=== PATIENT | female | born 1960 | race Caucasian/White ===

== ENCOUNTER 2022-09-29 15:16 | Outpatient (CLI) | payer OTHER ==
[2022-09-29] MEDS ORDERED: GABA-530 PO (16:29)
[2022-09-29] MEDS ORDERED: CELE-193 PO (16:29)
[2022-09-29] MEDS ORDERED: CYCL-145 PO (16:29)
== END 2022-09-29 23:59 | disposition home or self-care (01) ==
LOC: LAB 15:16 → EDSTATUS 10-08 11:45
PROVIDERS: ATTEND Orthopaedic Surgery
DX: Z01.818 Encounter for other preprocedural examination (principal); M17.11 Unilateral primary osteoarthritis, right knee; I51.7 Cardiomegaly
CPT/HCPCS: 87081; 93005

== ENCOUNTER 2023-02-11 05:31 | Inpatient (IN) | payer OTHER ==
[2023-02-02 12:06] LABS: ALBUMIN 4.4 G/DL (3.4-5.0); ALBUMIN/GLOBULIN RATIO 1.3 (1.1-1.5); ALKALINE PHOSPHATASE 80 IU/L (46-116); BLOOD UREA NITROGEN 6 MG/DL (7-18); BUN/CREATININE RATIO 9.1 (6.6-38.0); CALCIUM 9.5 MG/DL (8.5-10.1); CHLORIDE 98 MMOL/L (99-107); CREATININE 0.66 MG/DL (0.40-0.90); PRE OP ALT 11 U/L (30-65); PRE OP ANION GAP 6 (8-16); PRE OP AST 25 U/L (10-37); PRE OP BILIRUB, TOTAL 0.5 MG/DL (0.0-1.0); PRE OP GLUCOSE 117 MG/DL (70-104); PRE OP POTASSIUM 3.7 MMOL/L (3.4-5.1); PRE OP SODIUM 135 MMOL/L (135-145); TOTAL CARBON DIOXIDE 30.8 MMOL/L (24-32); TOTAL PROTEIN 7.9 G/DL (6.4-8.2); eGFR 90 ML/MIN
[2023-02-02 12:12] LABS: BASOPHILS % (AUTO) 0.4 % (0-1); EOSINOPHILS # (AUTO) 0.1 X10'3 (0-0.9); EOSINOPHILS % (AUTO) 0.7 % (0-6); LYMPHOCYTES # (AUTO) 1.4 X10'3 (1.1-4.8); LYMPHOCYTES % (AUTO) 17.9 % (21-51); MEAN CORPUSCULAR HEMOGLOBIN 30.4 PG (27.0-31.0); MEAN CORPUSCULAR HGB CONC 32.8 g/dL (33.0-36.5); MEAN CORPUSCULAR VOLUME 92.8 FL (78-98); MEAN PLATELET VOLUME 7.6 FL (7.4-10.4); MONOCYTES # (AUTO) 0.4 X10'3 (0-0.9); MONOCYTES % (AUTO) 5.2 % (2-12); NEUTROPHILS % (AUTO) 75.8 % (42-75); PRE OP HEMATOCRIT 41.6 % (35.0-45.0); PRE OP HEMOGLOBIN 13.6 g/dL (12.0-16.0); PRE OP PLATELET COUNT 333 X10'3 (140-440); RED BLOOD COUNT 4.48 X10'6 (4.20-5.60); RED CELL DISTRIBUTION WIDTH 13.1 % (11.5-14.5)
[~2023-02-11] VITALS: Ht 182.9 cm; Wt 61.2 kg
[2023-02-11] VITALS (19 sets, daily range): BP systolic 110–156; BP diastolic 61–99
[~2023-02-11 05:31] MED LIST: CELE-85 PO; CYCL-145 PO; DULO30CA52 PO; GABA300C PO; MELA3TAB39 PO; cefazolin 2gm/D5W 100mL 100 ML IV ONE; famotidine 20mg tablet PO ONE; ringers solution, lacted 1,000 ML IV SCH; tranexamic acid inj. 1,000 MG in normal saline IV soln 100ML IV ONE; vancomycin/NS 1 GM in NS 250 ML IV ONE
[2023-02-11] MEDS ORDERED: morphine 10mg/ml inj. ONE (06:54)
[2023-02-11] MEDS ORDERED: tetracaine 1% (10mg/ml) pres. free inj. ONE (07:16)
[2023-02-11] MEDS ORDERED: epiNEPHrine 1 mg/ml inj ONE (07:19)
[2023-02-11] MEDS ORDERED: ROPIVAcaine 0.5% (5mg/ml) 30ml vial ONE ×2 (07:19→10:03)
[2023-02-11] MEDS ORDERED: vancomycin 1,000mg inj ONE (07:19)
[2023-02-11] MEDS ORDERED: fentaNYL/PF 50MCG/1 ML 2ML syringe ONE (08:08)
[2023-02-11] MEDS ORDERED: acetaminophen 1,000mg/100ml IV 100 ML IV PRN (08:45)
[2023-02-11] MEDS ORDERED: ROPIVAcaine 0.2%/PF PUMP/bolus 545 ML ADDCANAL SCH (08:45)
[2023-02-11] MEDS ORDERED: morphine 2 MG/ML inj. syringe IV PRN (08:45)
[2023-02-11] MEDS ORDERED: meperidine/PF 25mg/ml syringe IV PRN (08:45)
[2023-02-11] MEDS ORDERED: hydrALAZINE 20mg/ml inj. IV PRN (08:45)
[2023-02-11] MEDS ORDERED: morphine 4 MG/ML inj SYRINge IV PRN (08:45)
[2023-02-11] MEDS ORDERED: proCHLORperazine 10 MG/2 ml inj IV PRN (08:45)
[2023-02-11] MEDS ORDERED: ringers solution, lacted 1,000 ML IV SCH (08:45)
[2023-02-11] MEDS ORDERED: ROPIVAcaine 0.2% (10 MG/5 ML) BOLUS INJECTION ADDCANAL PRN (08:45)
[2023-02-11] MEDS ORDERED: labetalol 20mg/4ml (5mg/ml) syringe IV PRN (08:45)
[2023-02-11] MEDS ORDERED: ondansetron/PF 4mg/2ml inj IV PRN ×2 (08:45→11:00)
[2023-02-11] MEDS ORDERED: HYDROmorphone/PF 0.2 MG/ML SYRINGE IV PRN ×2 (08:45)
[2023-02-11] MEDS ORDERED: midazolam 1 mg/ML 2ml injection ONE (08:49)
[2023-02-11] MEDS ORDERED: propofol inj 20 ML IV ONE ×3 (08:50)
[2023-02-11] MEDS ORDERED: diphenhydrAMINE 50 mg/ml inj ONE (08:50)
--- NOTE | 2023-02-11 10:47 | NUR ---
Received from OR via HOSPITAL BED TO ROOM 5 IN RECOVERY , accompanied by Anesthesiologist DR LEE and report given by Anesthesiolgist. PT PRESENTS WITH PIV 20G RIGHT WRIST,RIGHT KNEE WRAP WITH POWDER PACK, DANGELO CATHETER WITH 400MLS OUTPUT, LR RUNNING AT 100MLS/HR, SPO2 WITH MASK ON 10L O2, VSS. Addendum: 02/11/23 at 1111 by Liudmila Lund RN, RN Amended: Links added.
[2023-02-11] MEDS ORDERED: oxyCODONE IR 5mg (immed. release) tablet PO PRN (11:00)
[2023-02-11] MEDS ORDERED: diphenhydrAMINE 25mg capsule PO PRN ×2 (11:00)
[2023-02-11] MEDS ORDERED: acetaminophen 325mg tablet PO PRN (11:00)
[2023-02-11] MEDS ORDERED: HYDROmorphone 1 mg/ml syringe IV PRN (11:00)
[2023-02-11] MEDS ORDERED: naloxone 0.4 mg/ml inj IV PRN (11:00)
[2023-02-11] MEDS ORDERED: magnesium hydroxide 30ml (MOM) UD suspension PO PRN (11:00)
[2023-02-11] MEDS ORDERED: bisacodyl 10mg suppository rectal RC PRN (11:00)
[2023-02-11] MEDS ORDERED: HYDROmorphone inj. 0.5 MG/0.5 ML DISP.SYRIN IV PRN (11:00)
--- NOTE | 2023-02-11 12:13 | NUR ---
Patient in room PAS IN 900. I have received report from Liudmila in recovery and had the opportunity to ask questions and assume patient care.
--- NOTE | 2023-02-11 12:27 | NUR ---
Report called to receiving nurse. Transferred via HOSPITAL BED TO ROOM 4017A, WITH 1 PT BELONIGING BAG. BED IN LOW LOCKED POSITION WITH CALL LIGHT IN REACH. PT HOOKED UP TO VITALS. Belongings LEFT IN PT ROOM 4017A. PT CHART TAKEN TO NURSES STATION.. Special Issues communicated to receiving nurse. Addendum: 02/11/23 at 1233 by Liudmila Lund RN, RN Amended: Links added.
[2023-02-11] MEDS: gabapentin 300mg capsule PO SCH ×2 (12:42→20:43)
[2023-02-11] MEDS: oxyCODONE IR 5mg (immed. release) tablet PO PRN ×3 (12:45→20:40)
--- NOTE | 2023-02-11 13:18 | NUR ---
Re: Shin, [facility] wrote a 4370 last night, pending placement acceptance, much more alert, talkative, today, asking to leave [place] Addendum: 02/11/23 at 1318 by Hanna Carpio RN disregard, wrong patient
[2023-02-11] MEDS: acetaminophen 325mg tablet PO SCH ×2 (13:49→20:42)
[2023-02-11] MEDS ORDERED: tranexamic acid inj. 610 MG in normal saline 100ml IV soln 93.9 ML IV ONE (14:00)
[2023-02-11] MEDS ORDERED: non-formulary drug (Celecoxib 1 CAP) PO SCH (17:30)
--- NOTE | 2023-02-11 18:09 | NUR ---
Problems reprioritized. Patient report given, questions answered & plan of care reviewed with
--- NOTE | 2023-02-11 18:30 | NUR ---
Patient in room ORTHO 4017. I have received report from DARRICK SCANLON and had the opportunity to ask questions and assume patient care.
[2023-02-11] MEDS ORDERED: gabapentin 300mg capsule PO SCH (20:00)
[2023-02-11] MEDS: cyclobenzaprine 10mg tablet PO SCH (20:43)
[2023-02-11] MEDS ORDERED: sennosides 8.6mg tablet PO SCH (21:00)
[2023-02-11] MEDS ORDERED: Melatonin 3mg tablet PO SCH (21:00)
[2023-02-11] MEDS: ceFAZolin/D5W- 1GM premix 50 ML IV SCH (23:58)
[2023-02-12] MEDS ORDERED: vancomycin/NS 1 GM ADD-VANTAGE 250 ML IV ONE (01:00)
[2023-02-12] MEDS: oxyCODONE IR 5mg (immed. release) tablet PO PRN ×4 (01:02→16:50)
[2023-02-12 02:09] VITALS: BP 153/85
[2023-02-12] MEDS: acetaminophen 325mg tablet PO SCH ×3 (02:09→16:13)
[2023-02-12 06:00] VITALS: BP 117/59
--- NOTE | 2023-02-12 06:45 | NUR ---
Patient in room ORTHO 4017. I have received report from DARRICK Rodriguez and had the opportunity to ask questions and assume patient care.
[2023-02-12] MEDS: ceFAZolin/D5W- 1GM premix 50 ML IV SCH (07:59)
[2023-02-12] MEDS: gabapentin 300mg capsule PO SCH ×2 (07:59→13:27)
[2023-02-12] MEDS ORDERED: enoxaparin 30mg/0.3ml syringe SQ SCH (08:00)
[2023-02-12] MEDS ORDERED: duloxetine 30mg CAPSULE.DR PO SCH (08:00)
[2023-02-12] MEDS: cyclobenzaprine 10mg tablet PO SCH (08:01)
--- NOTE | 2023-02-12 10:42 | NUR ---
Joint surgery consult: Pt s/p R knee surgery this admit per EMR. Pt seen by RD for written/verbal high protein diet ed w/ RD contact information provided. RD encouraged pt to contact dietitian's office if further nutrition questions/concerns. Noted pt BMI 18.3 via standing scaled wt this admit; pt appears appropriate during RD visit reports eats well at home. Addendum: 02/12/23 at [address] Amended: Links added.
[2023-02-12 11:00] VITALS: BP 163/84
[2023-02-12] MEDS ORDERED: HYDROcodone/acetaminophen 10/325mg tab PO ONE (13:10)
[2023-02-12 15:00] LABS: CLARITY,URINE CLEAR (Clear); COLOR,URINE YELLOW (Yellow); GLUCOSE, URINE 500 mg/dl (Neg); KETONES,URINE 15 mg/dl (Neg); LEUKOCYTE ESTERASE ,URINE NEGATIVE (Neg); NITRITES, URINE NEGATIVE (Neg); OCCULT BLOOD,URINE NEGATIVE (Neg); PH,URINE 6.5 (4.8-8.0); PROTEIN,URINE NEGATIVE (Neg); UA COLLECTION TYPE CLN CATCH MIDSTREAM; UROBILINOGEN,URINE 0.2 E.U/dL (0.2-1.0)
--- NOTE | 2023-02-12 16:05 | NUR ---
WEAVING SUPERVISOR documentation: I have reviewed and agree with all interventions, assessments performed and documented by Tennille Lambert LVN .
--- NOTE | 2023-02-12 17:28 | NUR ---
Patient discharge home with spouse. Discharge information was provided and reviewed with patient whom verbalize understanding. Patient removed on-q herself before discharge. Staff assisted patient with all belongings to personal vehicle.
[2023-02-12] MEDS ORDERED: celeCOXIB 100mg capsule PO SCH (20:00)
[2023-02-13] MEDS ORDERED: acetaminophen 325mg tablet PO PRN (11:00)
--- NOTE | 2023-02-13 11:38 | NUR ---
I spoke with and notified him that we have the brace that holds ice for her knee and 4 island dressings that are available to [employer] at the nurses station. He called saying that the RN that DC his said she would give him the dressing changes and the wrap that holds ice and did not. They are at the RN station and ready for [employer] .
== END 2023-02-12 17:00 | disposition home or self-care (01) | DRG 470 ==
LOC: PAS IN 05:31 → ORTHO 4S 12:46
PROVIDERS: ADMIT Orthopaedic Surgery; ATTEND Orthopaedic Surgery
PROC: 3E0T3BZ Introduction of Anesthetic Agent into Peripheral Nerves and Plexi, Percutaneous Approach (ICD-10-PCS; 2023-02-11)
PROC: 0SRC0JA Replacement of Right Knee Joint with Synthetic Substitute, Uncemented, Open Approach (ICD-10-PCS; principal; 2023-02-11 08:01)
DX: M17.11 Unilateral primary osteoarthritis, right knee (principal); N39.0 Urinary tract infection, site not specified; R35.89 Other polyuria; R63.1 Polydipsia; Z79.899 Other long term (current) drug therapy
CPT/HCPCS: Z7506; Z7508; 36415; 73560; 80053; 81003; 82948; 85025; 87081; 97110; 97116; 97161; 97530; A4215; A6258; A6449; A7000; C1758; C1776; C9250; G0378; J0171; J0690; J1200; J1650; J2250; J2274; J2704; J2795; J3010; J3370; J3490; J7120